=== PATIENT | female | born 1985 | race Caucasian/White ===

== ENCOUNTER 2019-11-28 02:00 | Outpatient (CLI) | payer MEDICAID, SELFPAY ==
--- NOTE | 2019-11-28 09:50 | DI.US_ITS ---
EXAM: US OB 2-3 TRIMESTER CLINICAL HISTORY: Z34.92 SURVEY, SUPERVISION NORMAL COMPARISON: No exams were available for comparison FINDINGS: The fetus was in variable position during the exam. The placenta is anterior. The biometric measure ments correspond to 19 weeks 2 days. No abnormalities are seen. The amount of the amniotic fl uid appears visually normal. Heart Rate: 145 BPM IMPRESSION: survey is within normal limits.
== END 2019-11-28 02:20 ==
PROVIDERS: PCP Family Medicine; Visit Provider Family Medicine
DX: Z34.92 Encounter for supervision of normal pregnancy, unspecified, second trimester (principal); Z3A.19 19 weeks gestation of pregnancy
CPT/HCPCS: 76805

== ENCOUNTER 2020-04-05 01:58 | Inpatient (IN) | payer MEDICAID, SELFPAY ==
[2020-04-05] MEDS: Lactated Ringers 1,000 ML 125 ML IV (04:13)
[2020-04-05] MEDS: Normal Saline Flush 10 ML SYR IVP (04:13)
[2020-04-05 08:24] LABS: HCT 41.7 % (36.0-46.0); HGB 13.8 g/dL (12.0-15.5); Mean Corp. HGB Concentration 33.1 g/dL (32.0-36.0); Mean Corpuscular Volume 93.7 fL (80-95); Mean Platelet Volume 12.5 fL (8.0-11.0); Platelet Count 154 x1000/uL (130-400); RBC 4.45 m/cumm (4.00-5.20); RBC Distribution Width 13.8 % (11.7-14.6); White Blood Cell Count 11.04 k/cumm (4.4-10.8)
[2020-04-05] MEDS: FentaNYL/ROPIvacaine 2 mcg/ml and 0.1% 200 ML CADD Cassette EP (08:25)
[2020-04-05] MEDS: Lactated Ringers 250 ML 500 ML IV (09:18)
[2020-04-05] MEDS: Oxytocin/Normal Saline 30 UNITS/500 ML BAG 4 UNITS IV (13:38)
[2020-04-05] MEDS: Lactated Ringers 1,000 ML 150 ML IV (13:39)
[2020-04-05] MEDS: Lidocaine 1% Multi-Dose 20 ML VIAL IJ (20:30)
[2020-04-05] MEDS: Oxytocin/Normal Saline 30 UNITS/500 ML BAG 95 UNITS IV (20:30)
[2020-04-05 21:39] LABS: COVID-19 RT-PCR UVMMC Result Negative (Negative)
[2020-04-05] MEDS: Ibuprofen 600 MG TAB PO (23:05)
[2020-04-05] MEDS: Acetaminophen 325 MG TAB 650 MG PO (23:05)
[2020-04-06] MEDS: Acetaminophen 325 MG TAB 650 MG PO (06:23)
[2020-04-06] MEDS: Ibuprofen 600 MG TAB PO ×3 (06:23→17:40)
[2020-04-06 06:53] LABS: HCT 33.6 % (36.0-46.0); HGB 11.4 g/dL (12.0-15.5); Mean Corp. HGB Concentration 33.9 g/dL (32.0-36.0); Mean Corpuscular Hemoglobin 31.7 pg (27.0-33.0); Mean Corpuscular Volume 93.3 fL (80-95); Mean Platelet Volume 12.5 fL (8.0-11.0); Platelet Count 138 x1000/uL (130-400); RBC Distribution Width 13.2 % (11.7-14.6); White Blood Cell Count 17.87 k/cumm (4.4-10.8)
[2020-04-06] MEDS: glipiZIDE 10 MG TAB PO ×2 (09:44→17:40)
[2020-04-07] MEDS: glipiZIDE 10 MG TAB PO ×2 (07:50→16:38)
[2020-04-07] MEDS: Acetaminophen 325 MG TAB 650 MG PO ×2 (08:31→18:52)
[2020-04-07] MEDS: Ibuprofen 600 MG TAB PO ×2 (08:32→18:50)
[2020-04-07] MEDS: Sertraline 50 MG TAB PO (21:53)
[2020-04-08] MEDS: Hamamelis Leaf/Glycerin 100 EACH BOX PR (10:45)
== END 2020-04-08 12:25 | disposition home or self-care (01) | DRG 807 ==
PROVIDERS: Admitting Provider Family Medicine; PCP Family Medicine; Visit Provider Family Medicine
DX: O62.1 Secondary uterine inertia (principal); Z37.0 Single live birth; O24.425 Gestational diabetes mellitus in childbirth, controlled by oral hypoglycemic drugs; Z3A.37 37 weeks gestation of pregnancy; Z79.84 Long term (current) use of oral hypoglycemic drugs; Z67.10 Type A blood, Rh positive; O99.345 Other mental disorders complicating the puerperium; O90.6 Postpartum mood disturbance; O09.523 Supervision of elderly multigravida, third trimester; O99.334 Smoking (tobacco) complicating childbirth; F17.210 Nicotine dependence, cigarettes, uncomplicated
CPT/HCPCS: 36415; 85027; 86850; 86900; 86901; U0003; G0378; J3490

== ENCOUNTER 2021-03-09 01:03 | Outpatient (CLI) | payer MEDICAID, SELFPAY ==
--- NOTE | 2021-03-09 | DI.US_ITS ---
Exam(s) US THYROID EXAM: US THYROID CLINICAL HISTORY: THYROMEGALY,E01.0 TECHNIQUE: Ultrasound performed using standard protocol. COMPARISON: US US OB 2-3 TRIMESTER from 11/28/2019 FINDINGS: Thyroid ultrasound was performed according to the usual protocol. Right lobe measures 49 x 13 x 20 m illimeters and left lobe measures 38 x 12 x 17 millimeters. The isthmus is about 4 millimeters in th ickness. Thyroid parenchyma is fairly homogeneous,, a 4 millimeter mixed cystic and solid nodule is noted at t he inferior pole of the right thyroid lobe. No suspicious findings. No evidence of cervical adenopathy. IMPRESSION: Essentially negative thyroid ultrasound. DATA REPOSITORY:
== END 2021-03-09 01:23 ==
PROVIDERS: PCP Family Medicine; Visit Provider Family Medicine
DX: E04.1 Nontoxic single thyroid nodule (principal); E01.0 Iodine-deficiency related diffuse (endemic) goiter
CPT/HCPCS: 76536